=== PATIENT | female | born 1955 | race African-American/Black ===

== ENCOUNTER 2019-08-28 03:14 | Emergency (ER) | payer BC ==
[~2019-08-28] VITALS: Ht 165.1 cm; Wt 75.0 kg
[2019-08-28 03:55] VITALS: BP 135/64
[2019-08-28 04:57] LABS: BASOPHILS % 1.3 % (0.0-2.0); EOSINOPHILS % 6.6 % (0.0-5.0); HEMATOCRIT. 41.2 % (36.0-48.0); LYMPHOCYTES % 20.2 % (20.0-50.0); MEAN CORPUSCULAR HEMOGLOBIN 30.9 pg (28.0-32.0); MEAN PLATELET VOLUME 9.1 fl (7.4-10.4); MONOCYTES % 7.1 % (2.0-8.0); NEUTROPHILS % 64.8 % (40.0-76.0); PLATELET 284 x1000/uL (130-400); RED BLOOD CELL COUNT 4.53 mill/uL (4.2-5.4); RED CELL DISTRIBUTION WIDTH 13.7 % (11.6-14.6)
[2019-08-28 05:04] LABS: CHLORIDE 105 mEq/L (98-107)
== END 2019-08-28 06:08 | disposition home or self-care (01) ==
LOC: ER 03:14
DX: R55 Syncope and collapse (principal); I10 Essential (primary) hypertension; E03.9 Hypothyroidism, unspecified
CPT/HCPCS: 36415; 71045; 80053; 84484; 85025; 93005; 99284; Z7610